=== PATIENT | male | born 1975 | race Hispanic/Latino ===

== ENCOUNTER 2017-03-15 14:11 | Observation (INO) | payer SELFPAY ==
[2017-03-15] MEDS ORDERED: Aspirin 325 mg EC Tablets PO STA (14:34)
[2017-03-15] MEDS ORDERED: Ipratropium 0.02% Inhal Soln (0.5 mg/2.5 ml) UD IH STA (14:34)
[2017-03-15] MEDS ORDERED: Sodium Chloride 0.9% 1,000 ML IV STA (14:51)
--- NOTE | 2017-03-15 14:54 | ED PDOC ---
Arrival/HPI - General Chief Complaint: Chest Pain Time Seen by Provider: 03/15/17 14:17 - History of Present Illness Narrative History of Present Illness (Text): 42 y/o male w/ pmhx of cigarette smoking, possible HI while in (as per pt. md's told him this during admisison at the time), presents c/o 2 days of increased mars/sob/bipectorally located cp radiating to his right lower back (differs from his chronic back pain). Denies family history of premature acs. ros : chronic nonworseining smoker's cough. cp at rest unclear if exertionally exacerbated . Denies recent trauma. 03/15/17 14:51 Past Medical History - Provider Review Nursing Documentation Reviewed: Yes - Infectious Disease Hx of Infectious Diseases: None - Tetanus Immunization Tetanus Immunization: Up to Date (06/2014) - Past Medical History Past Medical History: No Previous - Cardiac Hx Cardiac Disorders: No Hx Hypertension: No - Pulmonary Hx Respiratory Disorders: No Hx Tuberculosis: No - Neurological HX Cerebrovascular Accident: No Hx Seizures: No - HEENT Hx HEENT Disorder: No - Renal Hx Renal Disorder: No - Endocrine/Metabolic Hx Endocrine Disorders: No - Hematological/Oncological Hx Blood Disorders: No - Integumentary Hx Cellulitis: Yes (2015, right arm) - Musculoskeletal/Rheumatological Hx Musculoskeletal Disorders: No - Gastrointestinal Hx Gastrointestinal Disorders: No - Genitourinary/Gynecological Hx Genitourinary Disorders: No Hx Sexually Transmitted Diseases: No - Psychiatric Hx Psychophysiologic Disorder: No Hx Depression: No Hx Emotional Abuse: No Hx Physical Abuse: No Hx Substance Use: No - Surgical History Hx Tonsillectomy: Yes - Anesthesia Hx Anesthesia: Yes Hx Anesthesia Reactions: No Hx Malignant Hyperthermia: No - Suicidal Assessment Feels Threatened In Home Enviroment: No Family/Social History - Physician Review Nursing Documentation Reviewed: Yes Family/Social History: No Known Family HX Smoking Status: Heavy Smoker > 10 Cigarettes Daily Hx Alcohol Use: Yes Hx Substance Use: No Hx Substance Use Treatment: No Allergies/Home Meds Allergies/Adverse Reactions: Allergies No Known Allergies Allergy (Verified 03/01/15 06:07) Home Medications: Home Meds Medication Instructions Recorded Confirmed Meloxicam [Mobic] 15 mg PO DAILY 03/15/17 03/15/17 Review of Systems - Physician Review All systems were reviewed & negative as marked: Yes - Review of Systems Constitutional: Normal Eyes: Normal ENT: Normal Respiratory: SOB, Cough Cardiovascular: Chest Pain Gastrointestinal: Normal Genitourinary Male: Normal Musculoskeletal: Normal Skin: Normal Neurological: Normal Endocrine: Normal Hemo/Lymphatic: Normal Psychiatric: Normal Physical Exam Vital Signs Reviewed: Yes Vital Signs Temp Pulse Resp BP Pulse Ox 03/15/17 14:39 97.5 F L 76 17 122/76 95 03/15/17 14:21 97.5 F L 71 16 122/66 99 Temperature: Afebrile Blood Pressure: Normal Pulse: Regular Respiratory Rate: Normal Appearance: Positive for: Well-Appearing, Non-Toxic, Comfortable Pain Distress: None Mental Status: Positive for: Alert and Oriented X 3 - Systems Exam Head: Present: Atraumatic, Normocephalic Pupils: Present: PERRL Extroacular Muscles: Present: EOMI Conjunctiva: Present: Normal Mouth: Present: Moist Mucous Membranes Neck: Present: Normal Range of Motion Respiratory/Chest: Present: Clear to Auscultation, Good Air Exchange. No: Respiratory Distress, Accessory Muscle Use Cardiovascular: Present: Regular Rate and Rhythm, Normal S1, S2. No: Murmurs Abdomen: Present: Normal Bowel Sounds. No: Tenderness, Distention, Peritoneal Signs Back: Present: Normal Inspection Upper Extremity: Present: Normal Inspection. No: Cyanosis, Edema Lower Extremity: Present: Normal Inspection. No: Edema Neurological: Present: GCS=15, CN II-XII Intact, Speech Normal, Motor Func Grossly Intact, Normal Sensory Function, Normal Cerebellar Funct, Norm Deep Tendon Reflexes, Gait Normal, Memory Normal, Normal 2Pt Descrimination Skin: Present: Warm, Dry, Normal Color. No: Rashes Psychiatric: Present: Alert, Oriented x 3, Normal Insight, Normal Concentration Medical Decision Making ED Course and Treatment: 03/15/17 14:55 42 y/o male w/ pmhx of HI, coigarette smoking p/w 2 days of cp/sob/mars radiating to rt lower back . consider observation/admission for cp r/o acs/dissection . PERC (-) for pe. risk stratify w/ labs /serial ce's/ekg's consider ct dissection protocol . ekg : nsr @ 72 bpm isolated twi in iii, no ischemic st-t- segments nor arrythmogenic ointervals - RAD Interpretation Radiology Orders: 03/15/17 14:34 CHEST TWO VIEWS (PA/LAT) [RAD] Stat 03/15/17 14:36 ANGIOGRAPHY DISECTION PROTOCOL [CT] Stat - Medication Orders Current Medication Orders: Discontinued Medications Aspirin (Ecotrin) 325 mg PO STAT STA Stop: 03/15/17 14:35 Ipratropium [place] (Atrovent) 0.5 mg IH STAT STA Stop: 03/15/17 14:35 Disposition/Present on Arrival - Present on Arrival History of DVT/PE: No History of Uncontrolled Diabetes: No Urinary Catheter: No History of Decub. Ulcer: No History Surgical Site Infection Following: None - Disposition
[2017-03-15 14:59] VITALS: BMI 33.7
[2017-03-15 15:10] LABS: BASO # 0.02 K/mm3 (0.0-2.0); BASO % 0.3 % (0.0-3.0); EOS # 0.1 (0.0-0.7); EOS % 1.5 % (1.5-5.0); GRAN # 4.85 (1.4-6.5); GRAN % 64.7 % (50.0-68.0); HEMATOCRIT 40.6 % (42.0-52.0); LYMPH # 2.1 (1.2-3.4); LYMPH % 27.8 % (22.0-35.0); MEAN CELL VOLUME 90.2 fl (80.0-105.0); MEAN CORPUSCULAR HEMOGLOBIN 31.1 pg (25.0-35.0); MEAN CORPUSCULAR HGB CONC 34.5 g/dl (31.0-37.0); MEAN PLATELET VOLUME 9.6 fl (7.0-11.0); MONO # 0.4 (0.1-0.6); MONO % 5.7 % (1.0-6.0); RED CELL DISTRIBUTION WIDTH 13.1 % (11.5-14.5); WHITE BLOOD COUNT 7.5 10^3/ul (4.5-11.0)
[2017-03-15 15:18] LABS: ALKALINE PHOSPHATASE 55 U/L (38-126); ALT/SGPT 87 U/L (7-56); AST/SGOT 41 U/L (17-59); BILIRUBIN,TOTAL 0.9 mg/dL (0.2-1.3); BLOOD UREA NITROGEN 16 mg/dL (7-21); CALCIUM 9.8 mg/dL (8.4-10.5); CARBON DIOXIDE 26 mmol/L (21-33); CHLORIDE 106 mmol/L (98-107); GFR AFRICAN-AMERICAN > 60; GLUCOSE,RANDOM 103 mg/dL (70-110); POTASSIUM 3.9 mmol/L (3.6-5.0); SODIUM 141 mmol/L (132-148)
[2017-03-15 15:19] LABS: INR 1.05 (0.93-1.08); PARTIAL THROMBOPLASTIN TIME 38.6 Seconds (25.1-36.5)
[2017-03-15 15:30] LABS: TROPONIN I < 0.01 ng/mL
[2017-03-15 15:39] LABS: ALB/GLOB RATIO 1.6 (1.1-1.8)
[2017-03-15 15:46] LABS: URINE BILIRUBIN NEGATIVE (NEGATIVE); URINE BLOOD TRACE-INTACT (NEGATIVE); URINE GLUCOSE (UA) NEGATIVE (NEGATIVE); URINE KETONE NEGATIVE (NEGATIVE); URINE LEUKOCYTE ESTERASE NEGATIVE Leu/uL (NEGATIVE); URINE PROTEIN NEGATIVE mg/dL (<30 mg/dL); URINE UROBILINOGEN 0.2 E.U./dL (<1 E.U./dL)
[2017-03-15 15:50] LABS: URINE APPEARANCE CLEAR (CLEAR); URINE COLOR YELLOW (YELLOW)
[2017-03-15 15:56] LABS: URINE RBC 0 - 2 /hpf (0-2); URINE WBC NEGATIVE /hpf (0-6)
[2017-03-15 16:00] LABS: VENOUS BLOOD GAS BASE EXCESS 0.3 mmol/L (0.0-2.0); VENOUS BLOOD PH 7.37 (7.32-7.43)
--- NOTE | 2017-03-15 16:29 | CT ---
PROCEDURE: CT Angiography Chest, Abdomen and Pelvis with and without intravenous contrast HISTORY: r/po dissection vs pe COMPARISON: None. TECHNIQUE: Contiguous axial images of the chest, abdomen and pelvis were obtained in the phase of aortic enhancement. A noncontrast enhanced CT of the chest was also obtained to evaluate for possible intramural thrombus. Coronal and sagittal reformats were generated. IV dose administered: 147 mL Omnipaque 350 Radiation dose: Total exam DLP = 1436.84 mGy-cm. This CT exam was performed using one or more of the following dose reduction techniques: Automated exposure control, adjustment of the mA and/or kV according to patient size, and/or use of iterative reconstruction technique. FINDINGS: CT ANGIOGRAPHY OF THE CHEST WITH & WITHOUT CONTRAST: AORTA (CHEST AND ABDOMEN): The visualized thoracic and abdominal aorta are unremarkable, without aneurysm, dissection or rupture. No intramural thrombus identified in the thoracic aorta on the non-contrast ct of the chest. The top most part of the aortic arch on post-contrast sequence is excluded on the acquisition scan. The celiac axis, superior mesenteric artery, inferior mesenteric artery and the renal arteries are widely patent. The pelvic arteries are unremarkable. LUNGS: There are two adjacent 3 mm and 4 mm subpleural nodules in the right middle lobe. There is minimal bibasilar atelectasis. No nodule, mass or consolidation. MEDIASTINUM: The heart is normal in size. There is no pericardial effusion. Minimal residual thymic tissue is identified LYMPH NODES: Subcentimeter mediastinal lymph nodes are likely reactive in etiology. PLEURA: No pneumothorax. No pleural fluid. BONES: Within normal limits for the patient's age. OTHER FINDINGS: None. CT ANGIOGRAPHY OF THE ABDOMEN AND PELVIS WITH CONTRAST: LIVER: Allowing for angiographic phase, there is diffuse fatty infiltration in the liver and mild hepatomegaly. . No gross lesion or ductal dilatation. GALLBLADDER AND BILE DUCTS: No calcified gallstones. PANCREAS: Normal in size with homogeneous enhancement. No gross lesion or ductal dilatation. SPLEEN: Mild splenomegaly. ADRENALS: There is a large 7.0 x 4.9 cm low-attenuation mass in the right adrenal gland with attenuation values corresponding to fluid density. . No discrete nodule in the left adrenal gland. KIDNEYS AND URETERS: Both kidneys are normal in size and there is homogeneous enhancement. No hydronephrosis. No solid mass. VASCULATURE: Unremarkable. No aortic aneurysm. STOMACH AND BOWEL: Unremarkable. No obstruction. No gross mural thickening. APPENDIX: Normal appendix. PERITONEUM: No free fluid. No free air. LYMPH NODES: No enlarged lymph nodes. BONES: No acute fracture. OTHER FINDINGS: None. IMPRESSION: 1. The top most portion of the aortic arch is excluded on acquisition scan due to technical error. Allowing for this, no evidence of aortic dissection or pulmonary embolism. 2. No evidence of consolidation, pleural effusion or pneumothorax. 3. No acute abdominal or pelvic abnormality. 4. Large 7.0 x 4.9 cm low density mass in the right adrenal gland likely represents a benign adenoma however given large size of the mass, short-term follow-up interval scan without and with intravenous contrast with adrenal protocol is recommended for definitive characterization. 5. Mild hepatosplenomegaly and hepatic steatosis.
--- NOTE | 2017-03-15 16:30 | RAD ---
HISTORY: COMPARISON: 11/25/2012. TECHNIQUE: Chest PA and lateral FINDINGS: LINES AND TUBES: None. LUNG AND PLEURA: The lungs are well inflated and clear. HEART AND MEDIASTINUM: The heart is not enlarged. The hilar and mediastinal contours are within normal limits. SKELETAL STRUCTURES: The bony structures are within normal limits for the patient's age. VISUALIZED UPPER ABDOMEN: Normal. OTHER FINDINGS: None. IMPRESSION: No active pulmonary disease.
[2017-03-15] MEDS ORDERED: Albuterol-Ipratrop 3 mg / 0.5 (3 ml) UD IH PRN (18:56)
[2017-03-15] MEDS ORDERED: Sodium Chloride 0.45% 1,000 ML IV SCH (19:00)
[2017-03-15] MEDS ORDERED: Pneumococcal 23-Valent Vaccine IM ONE (21:36)
[2017-03-15] MEDS ORDERED: Influenza Vaccine 60 mcg/0.5 mL SYR (4YR UP) IM ONE (21:36)
--- NOTE | 2017-03-15 21:48 | CARD ---
APPROVED REPORT EKG Measurement Heart [id number] <Conclusion> Poor data quality, interpretation may be adversely affected Normal sinus rhythm Possible Lateral infarct, age undetermined Abnormal ECG
--- NOTE | 2017-03-15 21:58 | CP.PCM.PN ---
Subjective - Date & Time of Evaluation Date of Evaluation: 03/15/17 Time of Evaluation: 21:55 - Subjective Subjective: S:It was requested to insert a heparin lock. Patient has no complaints now. Pertinent medical record was reviewed. O: Last Vital Signs 3 Temp 98.0 F 03/15/17 21:26 Pulse 74 03/15/17 21:26 Resp 16 03/15/17 21:26 BP 119/68 03/15/17 21:26 Pulse Ox 95 03/15/17 20:20 Awake, alert , not in distress. Obese. LUNGS:Normal breathing pattern. A:Poor venous access. Encounter for intravenous line placement. P:# 22 angiocath was inserted in right forearm. Objective - Vital Signs/Intake and Output Vital Signs (last 24 hours): Temp Pulse Resp BP Pulse Ox 98.0 F 74 16 119/68 95 03/15/17 21:26 03/15/17 21:26 03/15/17 21:26 03/15/17 21:26 03/15/17 20:20 - Medications Medications: Current Medications Albuterol/Ipratropium (Duoneb 3 Mg/0.5 Mg (3 Ml) Ud) 3 ml IH Q6H PRN PRN Reason: Shortness of Breath Aspirin (Aspirin Chewable) 81 mg PO DAILY AIDAN Sodium Chloride (Sodium Chloride 0.45%) 1,000 mls @ 30 mls/hr IV .Q24H AIDAN Last Admin: 03/15/17 19:43 Dose: 30 mls/hr - Labs Labs: PT 11.5 SECONDS (9.4-12.5) 03/15/17 14:53 INR 1.05 (0.93-1.08) 03/15/17 14:53 APTT 38.6 Seconds (25.1-36.5) H 03/15/17 14:53
[2017-03-16 04:10] LABS: CHLORIDE 108 mmol/L (98-107)
[2017-03-16 04:18] LABS: ALB/GLOB RATIO 1.5 (1.1-1.8); ALKALINE PHOSPHATASE 47 U/L (38-126); ALT/SGPT 79 U/L (7-56); AST/SGOT 41 U/L (17-59); BILIRUBIN,TOTAL 0.7 mg/dL (0.2-1.3); BLOOD UREA NITROGEN 18 mg/dL (7-21); CALCIUM 9.2 mg/dL (8.4-10.5); CARBON DIOXIDE 24 mmol/L (21-33); GFR AFRICAN-AMERICAN > 60; GLUCOSE,RANDOM 104 mg/dL (70-110); SODIUM 141 mmol/L (132-148)
[2017-03-16 04:20] LABS: TROPONIN I < 0.01 ng/mL
--- NOTE | 2017-03-16 05:22 | HP ---
HISTORY OF PRESENT ILLNESS: I was called onto the emergency room to take look him today. He came in with a past medical history of increasing dyspnea on exertion, shortness of breath, chest pain on both sides, radiating to his right lower back, he defers from his usual chronic back pain, he is also a smoker. He has had a cough. PAST MEDICAL HISTORY: Cigarettes smoking and [place] when he was in the . He gets in the right arm in 2015. PAST SURGICAL HISTORY: He had a tonsillectomy surgery. FAMILY HISTORY: Hypertension in the family. SOCIAL HISTORY: He is a heavy smoker. He does drink alcohol. No drugs. ALLERGIES: NO KNOWN DRUG ALLERGIES. MEDICATIONS: He takes Mobic for back pain which is another problem he has. REVIEW OF SYSTEMS: No acute headaches, vision changes or hearing changes. No sore throat. He has shortness of breath. He has cough. He has chest pain. No palpitations. No nausea or vomiting, constipation or diarrhea. No abdominal pain. No problems with urinating. Does have chronic back pain. None at this time. His skin; no rashes or ulcers. No numbness or tingling. No sweating. No anxiety or depression. PHYSICAL EXAMINATION: GENERAL: He is comfortable at this time, well appearing, nontoxic, comfortable in bed, little bit nervous, quite a bit as hard. He is alert and oriented x3. VITAL SIGNS: He has 97.5 temperature, 76 pulse, 17 respiratory rate, 122/76 blood pressure, 95% O2 saturation on room air. HEENT: Head is atraumatic and normocephalic. Extraocular muscles intact. Pupils equal and reactive to light and accommodation. Conjunctivae is normal. Throat is moist. NECK: Supple. HEART: Regular rate. Normal S1 and S2. LUNGS: Decreased breath sounds. Clear to auscultation bilaterally. No wheezes or rhonchi. No rales. Fair effort. ABDOMEN: Soft, nontender. Positive bowel sounds. No guarding. No rebound. No CVA tenderness. EXTREMITIES: No edema. NEUROLOGIC: GCS is 15. Cranial nerves II through XII grossly intact. Speech is normal. SKIN: Warm and dry. No apparent rashes or ulcers. Alert and oriented x3. LYMPHATICS: Thyroid is midline. No palpable appreciable lymphadenopathy. LABORATORY DATA: He had a multiple tests done. He has a 7.5 white count, 14 hemoglobin, 40.6 hematocrit, 297 platelets. He has 1.05 INR, 7.37 pH, lactate was 1.3. He has a 141 sodium, potassium 3.9, BUN 16, creatinine 1, GFR greater than 62, sugars 103, calcium 9.8, total bili is 0.9, AST is 41, ALT is 87, alk phos 55, lactate dehydrogenase is 395, total creatinine kinase is 217, troponin I is less than 0.01, BNP is 90.8, total protein is 8, albumin is 4.9, globulin is 3. Urine; trace blood, toxicology was normal. He had a chest x-ray that was okay. CT scan and angio which showed benign right adrenal adenoma, fatty liver, otherwise he did well. He is going to have a consult with Cardiology and Pulmonology. He is getting troponin x2 more q. 8 hours, he will be on oxygen, he will have IV fluids, he will get an aspirin, he will have DuoNebs around the clock as needed. He will have oxygen and diet. If he does well hopefully tomorrow, we are going to discharge and he is on observation. He is here for chest pain and shortness of breath. Blas Fortune DO MTDD
[2017-03-16 05:27] LABS: HEMATOCRIT 39.7 % (42.0-52.0); MEAN CELL VOLUME 91.5 fl (80.0-105.0); MEAN CORPUSCULAR HEMOGLOBIN 30.9 pg (25.0-35.0); MEAN CORPUSCULAR HGB CONC 33.8 g/dl (31.0-37.0); MEAN PLATELET VOLUME 9.9 fl (7.0-11.0); RED CELL DISTRIBUTION WIDTH 13.4 % (11.5-14.5); WHITE BLOOD COUNT 7.7 10^3/ul (4.5-11.0)
--- NOTE | 2017-03-16 08:22 | CON ---
PULMONARY CONSULTATION DATE: 03/16/2017 REASON FOR CONSULTATION: Shortness of breath. REFERRING PHYSICIAN: Dr. Blas Fortune. HISTORY OF PRESENT ILLNESS: The patient is a 42-year-old male, with past medical history significant for questionable coronary artery disease, positive active smoker, who presents to [facility] with main complaints of increasing dyspnea on exertion and chest pain for the past 2 days. The patient is not short of breath at rest. He does have a chronic minimal cough with occasional sputum production - unchanged. There is no history of coughing up of blood. There is no history of chest pain-- worsened with deep respirations. There is no history of temperatures, chills or infectious exposure. There is no history of night sweats, weight loss or appetite change prior to the above events. No history of leg or calf pains. No history of syncope or diaphoresis. No history of recent travel or trauma. REVIEW OF SYSTEMS: No history of nausea, vomiting or diarrhea. No acute urinary symptoms. No new neurologic complaints. Rest of the review of systems negative. ALLERGIES: NO KNOWN ALLERGIES: SOCIAL HISTORY: Positive for extensive tobacco usage and positive social alcohol. FAMILY HISTORY: No inheritable diseases. HOME MEDICATIONS: Include Mobic. PHYSICAL EXAMINATION GENERAL: The patient is comfortable this morning. He is not short of breath at rest. He is not using accessory muscles for breathing. VITAL SIGNS: Temperature is 97.5, pulse 58, respirations 18, blood pressure 102/67. Oxygen saturation on room air ranges between 94-99%. HEENT: Normocephalic, atraumatic. No JVD. CARDIOVASCULAR: Positive S1, S2. No S3 gallop. LUNGS: Clear bilaterally. EXTREMITIES: No clubbing, cyanosis or edema. Calves are nontender to palpation. GI: Abdomen is soft, nontender and nondistended. Bowel sounds are positive. SKIN: No acute rash. NEUROLOGIC: Exam limited at the present time. PERTINENT LABORATORY DATA: CAT scan angiogram of the chest was done yesterday and reviewed. There is no evidence of aortic dissection or pulmonary embolism. There is no evidence of pulmonary consolidation, pleural effusion, or pneumothorax. There are two tiny nodules noted in the right middle lobe. CBC: White count 7.7, hemoglobin 13.4, hematocrit 39.7, platelets of 282. Complete metabolic profile: Chloride 108. ALT 79. Rest of the metabolic profile is within normal limits. IMPRESSION: 1. Chest pain - resolved. 2. Shortness of breath/dyspnea on exertion - resolved. 3. Questionable chronic obstructive pulmonary disease - positive active smoker. 4. Mild anemia. 5. Tiny pulmonary nodules - right middle lobe. PLAN: The patient presents to [facility] with main complaints of dyspnea on exertion and chest pain for the past 2 days. As above, the patient also has a chronic minimal cough - which has not changed recently. I did review the CAT scan of the chest. There are two tiny nodules in the right middle lobe. Otherwise, there are no new or significant findings noted. At the time of my examination, the patient's chest pain has now resolved. His shortness of breath has also resolved. On physical exam, his lungs are clear. Oxygen saturation on room air ranges between 94-99%. The patient is now on p.r.n. nebulizer treatments - which we can continue for now. Cardiology evaluation is ordered. Clinical status of the patient is significantly improved - compared to the initial presentation. I will discuss the above with Dr. Fortune. Thank you very much for this pulmonary consultation. Mark Murillo MD MTDLizz
--- NOTE | 2017-03-16 10:18 | DS ---
HISTORY OF PRESENT ILLNESS: He is resting comfortably in bed this morning. He is doing much better when he came in. No chest pain. No shortness of breath. No abdominal pain. He is in good spirits. His troponins were negative. The plan is to discharge him today after Cardiology sees him. I discussed with Pulmonology, and they stated he can be discharged. PHYSICAL EXAMINATION: VITAL SIGNS: He has a 97.5 temperature, 58 pulse, 102/67 blood pressure, 18 respiratory rate, 94% O2 sat on room air. HEENT: Head is atraumatic and normocephalic. Throat is moist. NECK: Supple. HEART: Regular rate. LUNGS: Decreased breath sounds, but clear to auscultation. No wheezes. No rhonchi. No rales. ABDOMEN: Soft, obese, nontender. EXTREMITIES: No edema. MEDICATIONS: He is going to go home on aspirin and I gave him some ProAir just in case. LABORATORY DATA: He had a negative drug screen. He has 141 sodium, potassium 4, BUN is 18, creatinine 1, GFR is greater than 62, sugar is 104, calcium is 9.2, total bilirubin is 0.7, AST is 41, ALT is 79, and alkaline phosphatase is 47. Troponin is less than 0.01. Total protein is 7. He has a white count of 7.7, hemoglobin of 13.4, hematocrit of 39.7, and platelets 282. On the CT angio which did show benign right renal mass, I made a copy of this CT angio and you could see the copy of this mass. I will send them to the air launch weapons technician on the outpatient for further evaluation. He had a hepatosplenomegaly, little fatty liver. I asked him to quit smoking, change his diet, exercise to lose weight. He should follow up with his primary care physician and the air launch weapons technician and also as an outpatient stress test. He will be discharged after Cardiology see him this morning. Shortness of breath and chest pain, on observation. All tests are basically negative. Blas Fortune DO
[2017-03-16 17:20] VITALS: BP 99/69; PULSE 54; RESP 18; TEMP 98.5; O2SAT 96
--- NOTE | 2017-03-16 23:34 | CON ---
DATE: CARDIOLOGY CONSULTATION REASON FOR CONSULTATION: Shortness of breath and chest discomfort. HISTORY OF PRESENT ILLNESS: The patient is a 42-year-old white male who is a heavy smoker, unaware of any prior cardiac history according to him; although, in the emergency room note, it is mentioned that he had possible SD while in the . The patient is being treated for chronic back pain with Mobic. The patient presented with shortness of breath, cough, and chest tightness radiating to the upper back. The patient denies any associated diaphoresis. SOCIAL HISTORY: The patient is a heavy smoker. 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 MEDICATIONS: The patient at home was on Mobic and he is currently on aspirin 81 mg once a day, albuterol inhaler q. 6 hours. REVIEW OF SYSTEMS: No fever or chills. No vomiting or diarrhea. PHYSICAL EXAMINATION GENERAL: The patient is a middle-aged male who does not appears to be in acute distress. VITAL SIGNS: Blood pressure 99/69, heart rate 54, temperature 98.5, respirations 18. HEENT: Normocephalic. CHEST: Diffuse bilateral rhonchi. HEART: S1 and S2 are regular. ABDOMEN: Soft. EXTREMITIES: No edema. LABORATORY DATA: Hemoglobin and hematocrit 13.4 and 39.7. White count and platelet count are within normal limit. Today, SMA-7 is within normal limit except for chloride of 108. Three sets of troponin are negative. PTT 38.6. Urine drug screen is negative. EKG revealed sinus rhythm, heart rate 72, lateral Q waves were noted, possible lateral infarct according to the official reading. Chest CT angio, the top most portion of the arch is excluded on aquisition scan due to technical error. Allowing for this, no evidence of aortic dissection or pulmonary embolism. No evidence of consolidation, pleural effusion or pneumothorax. No acute abdominal or pelvic abnormality. Large 7 x 4.9 cm low density mass in the right adrenal gland likely represent benign adenoma; however, given large size of the mass, short term follow up interval scan without and with contrast with adrenal protocol is recommended for definitive characterization. Mild hepatosplenomegaly and hepatic steatosis. ASSESSMENT: 1. Atypical chest pain, myocardial infarction ruled out. 2. Large right adrenal mass. 3. Abnormal EKG with evidence of lateral Q waves noted. CONDITIONS: In view of the patient insistence to go home immediately this evening, the patient was advised to have an echocardiographic study as an outpatient and also have the follow up CT scan with and without IV contrast with adrenal protocol as an outpatient with his medical team at [facility]. Cecilio Cox MD
== END 2017-03-16 18:42 | disposition home or self-care (01) ==
LOC: ED 14:11 → ERH 17:35 → 3RSO 20:03
PROVIDERS: ADMIT Family Medicine; ATTEND Family Medicine
DX: R07.89 Other chest pain (principal); R06.02 Shortness of breath; D64.9 Anemia, unspecified; G89.29 Other chronic pain; M54.9 Dorsalgia, unspecified; E27.9 Disorder of adrenal gland, unspecified; R94.31 Abnormal electrocardiogram [ECG] [EKG]; K76.0 Fatty (change of) liver, not elsewhere classified; R16.2 Hepatomegaly with splenomegaly, not elsewhere classified; R91.8 Other nonspecific abnormal finding of lung field; I25.2 Old myocardial infarction; F17.210 Nicotine dependence, cigarettes, uncomplicated
CPT/HCPCS: 36415; 71020; 71275; 74175; 80053; 81001; 82550; 82803; 83615; 83880; 84484; 85025; 85027; 85610; 85730; 87040; 87081; 87086; 93005; 99285; G0378; G0480; J7030; J7040; Q9967

== ENCOUNTER 2017-11-24 08:43 | Emergency (ER) | payer BC ==
[2017-11-24] MEDS ORDERED: Albuterol-Ipratrop 3 mg / 0.5 (3 ml) UD IH STA (08:59)
--- NOTE | 2017-11-24 09:00 | ED PDOC ---
Arrival/HPI - General Chief Complaint: Shortness Of Breath Time Seen by Provider: 11/24/17 08:47 Historian: Patient - History of Present Illness Time/Duration: > month Symptom Onset: Gradual Symptom Course: Worsening Severity Level: Mild Activities at Onset: Other (Exertion) Associated Symptoms (Text): 11/24/17 09:02 Patient complains of a 1-2 month history of dyspnea on exertion. No dyspnea at rest. No chest pain. He gets lightheaded when he becomes dyspneic. He reports that he was able to do a 500 mile bike challenge last month. 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 He reports that he has just been stubborn and that is why he finally came to the emergency department today. Currently in the stretcher he is comfortable with no symptoms. He has a mild smoker's cough. Nonproductive. No nausea or vomiting. No fever or chills. He appears to be in no distress. Past Medical History - Provider Review Nursing Documentation Reviewed: Yes - Infectious Disease Hx of Infectious Diseases: None - Tetanus Immunization Tetanus Immunization: Up to Date (06/2014) - Past Medical History Past Medical History: No Previous - Cardiac Hx Cardiac Disorders: No Hx Hypertension: No - Pulmonary Hx Respiratory Disorders: No Hx Tuberculosis: No - Neurological HX Cerebrovascular Accident: No Hx Seizures: No - HEENT Hx HEENT Disorder: No - Renal Hx Renal Disorder: No - Endocrine/Metabolic Hx Endocrine Disorders: No - Hematological/Oncological Hx Blood Disorders: No - Integumentary Hx Cellulitis: Yes (2014, right arm) - Musculoskeletal/Rheumatological Hx Musculoskeletal Disorders: No - Gastrointestinal Hx Gastrointestinal Disorders: No - Genitourinary/Gynecological Hx Genitourinary Disorders: No Hx Sexually Transmitted Diseases: No - Psychiatric Hx Psychophysiologic Disorder: No Hx Depression: No Hx Emotional Abuse: No Hx Physical Abuse: No Hx Substance Use: No - Surgical History Hx Tonsillectomy: Yes - Anesthesia Hx Anesthesia: Yes Hx Anesthesia Reactions: No Hx Malignant Hyperthermia: No - Suicidal Assessment Feels Threatened In Home Enviroment: No Family/Social History - Physician Review Nursing Documentation Reviewed: Yes Family/Social History: Unknown Family HX Smoking Status: Heavy Smoker > 10 Cigarettes Daily Hx Alcohol Use: Yes Frequency of alcohol use: Socially Hx Substance Use: No Hx Substance Use Treatment: No Allergies/Home Meds Allergies/Adverse Reactions: Allergies No Known Allergies Allergy (Verified 03/15/17 20:21) Review of Systems - Physician Review All systems were reviewed & negative as marked: Yes - Review of Systems Constitutional: absent: Fatigue, Fevers Respiratory: SOB, Cough. absent: Sputum, Wheezing Cardiovascular: absent: Chest Pain, Palpitations, Syncope Gastrointestinal: absent: Abdominal Pain, Nausea, Vomiting Neurological: Dizziness. absent: Headache, Focal Weakness, Gait Changes, Speech Changes, Facial Droop, Disequilibrium, Seizure Physical Exam Vital Signs Temp Pulse Resp BP Pulse Ox 11/24/17 09:02 18 98 11/24/17 08:44 97.9 F 77 23 121/67 94 L Temperature: Afebrile Blood Pressure: Normal Pulse: Regular Respiratory Rate: Normal Appearance: Positive for: Well-Appearing, Non-Toxic, Comfortable Pain Distress: None Mental Status: Positive for: Alert and Oriented X 3 - Systems Exam Head: Present: Atraumatic, Normocephalic Pupils: Present: PERRL Extroacular Muscles: Present: EOMI Conjunctiva: Present: Normal Mouth: Present: Moist Mucous Membranes Pharnyx: No: ERYTHEMA, EXUDATE, TONSILS ENLARGED Neck: Present: Normal Range of Motion Respiratory/Chest: Present: Decreased Breath Sounds. No: Respiratory Distress, Accessory Muscle Use, Wheezes, Rales, Retracting, Rhonchi, Tachypneic, Tender to Palpation Cardiovascular: Present: Regular Rate and Rhythm, Normal S1, S2. No: Murmurs Abdomen: No: Tenderness, Distention, Peritoneal Signs, Rebound, Guarding Upper Extremity: Present: Normal Inspection. No: Cyanosis, Edema Lower Extremity: Present: Normal Inspection. No: Edema Neurological: Present: GCS=15, CN II-XII Intact, Speech Normal, Motor Func Grossly Intact Skin: Present: Warm, Dry, Normal Color. No: Rashes Psychiatric: Present: Alert, Oriented x 3, Normal Insight, Normal Concentration Medical Decision Making ED Course and Treatment: 11/24/17 09:14 Patient is fallen asleep soundly on the bed. It is 9:00 in the morning. Screen has been ordered. 11/24/17 09:14 EKG shows normal sinus rhythm rate approximately [address] or T-wave changes. 11/24/17 10:26 No acute findings on the patient's workup. Discussed in detail with Dr. Fortune who will follow-up in the office next week. Patient needs to stop smoking. We will try an albuterol inhaler. Follow up in the ER as needed. - Lab Interpretations Lab Results: 11/24/17 09:00 11/24/17 09:00 Lab Results 11/24/17 09:30: Urine Color Yellow, Urine Appearance Clear, Urine pH 6.0, Ur Specific [place] 1.025, Urine Protein Negative, Urine Glucose (UA) Negative, Urine Ketones Negative, Urine Blood Negative, Urine Nitrate Negative, Urine Bilirubin Negative, Urine Urobilinogen 0.2, Ur Leukocyte Esterase Negative 11/24/17 09:30: Urine Opiates Screen Negative, Urine Methadone Screen Negative, Ur Barbiturates Screen Negative, Ur Phencyclidine Scrn Negative, Ur Amphetamines Screen Negative, U Benzodiazepines Scrn Negative, U Oth Cocaine Metabols Negative, U Cannabinoids Screen Negative 11/24/17 09:00: Sodium 143, Potassium 3.5 L, Chloride 106, Carbon Dioxide 23, Anion Gap 18, BUN 18, Creatinine 0.8, Est GFR ( Amer) > 60, Est GFR (Non- Af Amer) > 60, Random Glucose 117 H, Calcium 9.5, Magnesium 1.9, Total Bilirubin 0.9, AST 31, ALT 32, Alkaline Phosphatase 49, Lactate Dehydrogenase 344, Total Creatine Kinase 152, Troponin I < 0.01, NT-Pro-B Natriuret Pep 11.4, Total Protein 7.9, Albumin 4.9 H, Globulin 3.0, Albumin/Globulin Ratio 1.6 11/24/17 09:00: D-Dimer, Quantitative < 200 11/24/17 09:00: WBC 9.2, RBC 4.43, Hgb 13.2 L, Hct 38.4 L, MCV 86.7 D, MCH 29.8 , MCHC 34.4, RDW 13.3, Plt Count 306, MPV 9.4, Gran % 63.9, Lymph % (Auto) 25.3 , [place] % (Auto) 7.9 H, Eos % (Auto) 2.5, Baso % (Auto) 0.4, Gran # 5.85, Lymph # (Auto) 2.3, [place] # (Auto) 0.7 H, Eos # (Auto) 0.2, Baso # (Auto) 0.04 - RAD Interpretation Radiology Orders: 11/24/17 08:59 CHEST PORTABLE [RAD] Stat Chest one view shows no infiltrate or effusion or cardiomegaly. 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 Ulcer: No History Surgical Site Infection Following: None - Disposition Have Diagnosis and Disposition been Completed?: Yes Diagnosis: Dyspnea on exertion Disposition: HOME/ ROUTINE Disposition Time: 10:26 Patient Plan: Discharge Condition: GOOD Discharge Instructions (ExitCare): Shortness of Breath (Dyspnea) (DC) Additional Instructions: Stop smoking. Follow-up with Dr. Fortune next week. Follow up in ER as needed. Prescriptions: Albuterol HFA [Ventolin HFA 90 mcg/actuation (8 g)] 2 puff IH [id number] #1 puff Referrals: Blas Fortune DO [Staff Provider] - Follow up with primary Forms: [facility] (F[place]ian), WORK NOTE
[2017-11-24 09:06] VITALS: BP 121/67; TEMP 97.9; O2SAT 98; BMI 30.7
[2017-11-24 09:21] LABS: ALB/GLOB RATIO 1.6 (1.1-1.8); ALBUMIN 4.9 g/dL (3.0-4.8); ALT/SGPT 32 U/L (7-56); AST/SGOT 31 U/L (17-59); BLOOD UREA NITROGEN 18 mg/dL (7-21); CALCIUM 9.5 mg/dL (8.4-10.5); GFR AFRICAN-AMERICAN > 60; GFR NON-AFRICAN AMERICAN > 60
[2017-11-24] MEDS ORDERED: Potassium Chloride 10 mEq ER Tab PO STA (09:21)
[2017-11-24 09:32] LABS: B-TYPE NATRIURETIC PEPTIDE 11.4 pg/mL (0-450); TROPONIN I < 0.01 ng/mL
[2017-11-24 09:42] LABS: BASO # 0.04 K/mm3 (0.0-2.0); BASO % 0.4 % (0.0-3.0); EOS # 0.2 (0.0-0.7); EOS % 2.5 % (1.5-5.0); GRAN # 5.85 (1.4-6.5); GRAN % 63.9 % (50.0-68.0); HEMOGLOBIN 13.2 g/dL (14.0-18.0); LYMPH # 2.3 (1.2-3.4); LYMPH % 25.3 % (22.0-35.0); MEAN CELL VOLUME 86.7 fl (80.0-105.0); MEAN CORPUSCULAR HEMOGLOBIN 29.8 pg (25.0-35.0); MEAN CORPUSCULAR HGB CONC 34.4 g/dl (31.0-37.0); MEAN PLATELET VOLUME 9.4 fl (7.0-11.0); MONO # 0.7 (0.1-0.6); MONO % 7.9 % (1.0-6.0); RBC 4.43 10^6/uL (3.5-6.1); RED CELL DISTRIBUTION WIDTH 13.3 % (11.5-14.5); WHITE BLOOD COUNT 9.2 10^3/ul (4.5-11.0)
[2017-11-24 09:44] LABS: URINE BILIRUBIN NEGATIVE (NEGATIVE); URINE BLOOD NEGATIVE (NEGATIVE); URINE GLUCOSE (UA) NEGATIVE (NEGATIVE); URINE LEUKOCYTE ESTERASE NEGATIVE Leu/uL (NEGATIVE); URINE PROTEIN NEGATIVE mg/dL (<30 mg/dL); URINE UROBILINOGEN 0.2 E.U./dL (<1 E.U./dL)
[2017-11-24 09:45] LABS: URINE APPEARANCE CLEAR (CLEAR); URINE COLOR YELLOW (YELLOW)
[2017-11-24 10:09] LABS: BARBITURATES, UR NEGATIVE (NEGATIVE); BENZODIAZEPINES, UR NEGATIVE (NEGATIVE); OPIATES, UR NEGATIVE (NEGATIVE); PHENCYCLIDINE, UR NEGATIVE (NEGATIVE)
--- NOTE | 2017-11-24 10:28 | RAD ---
Date of service: 11/24/2017 HISTORY: Shortness of breath. COMPARISON: 03/15/2017. FINDINGS: LUNGS: No active pulmonary disease. PLEURA: No significant pleural effusion identified, no pneumothorax apparent. CARDIOVASCULAR: Normal. OSSEOUS STRUCTURES: No significant abnormalities. VISUALIZED UPPER ABDOMEN: Normal. OTHER FINDINGS: None. IMPRESSION: No active disease. No significant interval change compared to the prior examination(s).
[2017-11-24 10:47] VITALS: PULSE 66; RESP 19
--- NOTE | 2017-11-24 20:05 | CARD ---
APPROVED REPORT Date of service: 11/24/2017 EKG Measurement Heart [id number] <Conclusion> Normal sinus rhythm Lateral infarct, age undetermined Abnormal ECG
== END 2017-11-24 10:47 | disposition home or self-care (01) ==
LOC: ED 08:43
DX: R06.00 Dyspnea, unspecified (principal); F17.210 Nicotine dependence, cigarettes, uncomplicated
CPT/HCPCS: 71045; 80053; 81003; 82550; 83615; 83735; 83880; 84484; 85025; 85378; 93005; 94640; 99283; G0480